=== PATIENT | female | born 1975 | race Caucasian/White ===

== ENCOUNTER 2016-06-08 18:04 | Emergency (ER) | payer MEDICAID ==
[~2016-06-08 18:04] MED LIST: CHANTIX 1 MG TAB1 MG PO; CYCLOBENZAPRINE10 MG PO; HYSINGLA ER20 MG PO; KLONOPIN1 MG PO; MULTIPLE VITAMI1 TA1 PO; ULTRAVATE50 GM TP
== END 2016-06-08 19:39 | disposition home or self-care (01) ==
LOC: D.ER 18:04
DX: M87.051 Idiopathic aseptic necrosis of right femur (principal); M06.9 Rheumatoid arthritis, unspecified

== ENCOUNTER 2017-11-02 07:11 | Emergency (ER) | payer MEDICAID ==
[~2017-11-02] VITALS: Ht 157.5 cm; Wt 53.2 kg
[2017-11-02 07:16] VITALS: Ht 157.5 cm; Wt 53.2 kg
[2017-11-02] MEDS ORDERED: LEXAPRO20 MG ×2 (07:18→07:19)
[2017-11-02] MEDS ORDERED: REXULTI1 MG (07:19)
[2017-11-02] MEDS ORDERED: SOMA250 MG (07:19)
[2017-11-02] MEDS ORDERED: PERCOCET 7.5/321 TAB PO (08:47)
[2017-11-02 09:33] VITALS: BP 146/78
== END 2017-11-02 09:34 | disposition home or self-care (01) ==
LOC: D.ER 07:11
DX: S52.131A Displaced fracture of neck of right radius, initial encounter for closed fracture (principal); W19.XXXA Unspecified fall, initial encounter; Y93.K1 Activity, walking an animal; Y92.410 Unspecified street and highway as the place of occurrence of the external cause; F17.200 Nicotine dependence, unspecified, uncomplicated; M25.521 Pain in right elbow

== ENCOUNTER 2018-10-31 09:06 | Emergency (ER) | payer MEDICAID ==
[~2018-10-31] VITALS: Ht 157.5 cm; Wt 44.5 kg
[~2018-10-31 09:06] MED LIST changes: +LEXAPRO20 MG; +PERCOCET 7.5/321 TAB PO; +REXULTI1 MG; +SOMA250 MG
[2018-10-31 09:11] VITALS: Ht 157.5 cm; Wt 44.5 kg
[2018-10-31 09:51] LABS: BASOPHILS 0.1 % (0-2); EOSINOPHILS 2.1 % (0-7); HEMATOCRIT 40.9 % (36.0-48.0); HEMOGLOBIN 13.9 g/dL (12-16); IMMATURE GRANULOCYTES 0.2 % (0-5); LYMPHOCYTES 21.9 % (15-50); MCH 30.8 pg (26.0-34.0); MCV 90.5 fL (80.0-100.0); MEAN PLATELET VOLUME 9.2 fL (7.4-10.4); MONOCYTES 6.8 % (2-11); NEUTROPHILS 68.9 % (40-80); RBC 4.52 10x6/uL (4.00-5.40); WBC 8.5 10x3/uL (4.8-10.8)
[2018-10-31 09:55] LABS: PLATELET COUNT 290 10x3/uL (130-400)
[2018-10-31 10:12] LABS: APPEARANCE CLOUDY (CLEAR); BACTERIA MANY /hpf (NONE SEEN); BILIRUBIN NEGATIVE (NEGATIVE); COLOR YELLOW (YELLOW); EPITHELIAL CELLS 0-5 /hpf (0-5); GLUCOSE NEGATIVE (NEGATIVE); KETONE NEGATIVE (NEGATIVE); NITRITE POSITIVE (NEGATIVE); PROTEIN TRACE mg/dL (NEGATIVE); SPECIFIC GRAVITY 1.015 (1.005-1.020); UROBILINOGEN NORMAL (NORMAL); WHITE CELLS - URINE 25-50 /hpf (0-5)
[2018-10-31 10:12] LABS: ALBUMIN 3.5 g/dL (3.4-5.0); ALKALINE PHOSPHATASE 74 U/L (46-116); ALT (SGPT) 23 U/L (10-68); BILIRUBIN - TOTAL 0.32 mg/dL (0.2-1.3); CALCIUM 9.1 mg/dL (8.5-10.1); CARBON DIOXIDE 24.5 mmol/L (21.0-32.0); CHLORIDE - SERUM 104 mmol/L (98-107); CREATININE - SERUM 0.6 mg/dL (0.6-1.3); MAGNESIUM - SERUM 2.1 mg/dL (1.8-2.4); PROTEIN - SERUM 7.9 g/dL (6.4-8.2); SODIUM 140 mmol/L (136-145); UREA NITROGEN 11 mg/dL (7-18); eGFR NON AFRICAN AMERICAN > 90 mL/min (90-120)
[2018-10-31 10:13] LABS: AMORPHOUS SEDIMENT <1+ /lpf (NONE SEEN); MUCUS <1+ /lpf (NONE SEEN); RED CELLS - URINE 0-5 /hpf (0-5); UDS - AMPHET POSITIVE QUAL (NEGATIVE); UDS - BARB NEGATIVE QUAL (NEGATIVE); UDS - BENZO POSITIVE QUAL (NEGATIVE); UDS - COCAINE NEGATIVE QUAL (NEGATIVE); UDS - OPIATE NEGATIVE QUAL (NEGATIVE); UDS - PCP NEGATIVE QUAL (NEGATIVE); UDS - THC NEGATIVE QUAL (NEGATIVE)
[2018-10-31 10:14] LABS: CALC OSMOLALITY 282 mosm/kg (275-300); GLUCOSE 180 mg/dL (74-106)
[2018-10-31 10:15] LABS: POTASSIUM - SERUM 2.9 mmol/L (3.5-5.1)
--- NOTE | 2018-10-31 11:06 | NUR ---
DR. NICOLE NOTIFIED AND 1:1 SITTER OBSERVATION ORDERED. SITTER AT BEDSIDE. NOTIFIED CHARGE NURSE AND ATTENDING IN REGARDS TO ASSESSMENT FINDINGS. RESOURCES GIVEN TO PT AND SAFETY PLAN INITATED.
[2018-10-31] MEDS ORDERED: SEROQUEL100 MG PO (17:02)
[2018-11-01 02:25] VITALS: BP 110/68
== END 2018-11-01 02:24 ==
LOC: D.ER 09:06
PROVIDERS: Emergency Medicine
DX: R45.851 Suicidal ideations (principal); E87.6 Hypokalemia; N39.0 Urinary tract infection, site not specified

== ENCOUNTER 2019-12-06 20:10 | Emergency (ER) | payer MEDICAID ==
[~2019-12-06] VITALS: Ht 157.5 cm; Wt 50.0 kg
[~2019-12-06 20:10] MED LIST changes: +SEROQUEL100 MG PO
[2019-12-06] MEDS ORDERED: BACTRIM DS TAB1 EAC1 PO (21:17)
[2019-12-06 21:19] VITALS: Ht 157.5 cm; Wt 50.0 kg
[2019-12-06 21:24] VITALS: BP 136/72
== END 2019-12-06 21:24 | disposition home or self-care (01) ==
LOC: D.ER 20:10
DX: L03.115 Cellulitis of right lower limb (principal)